=== PATIENT | male | born 1960 | race Caucasian/White ===

== ENCOUNTER 2017-11-11 14:23 | Observation (INO) ==
[2017-11-11] MEDS ORDERED: *HR* Heparin 5,000 UNIT/ML VIAL IVP ONE (16:46)
[2017-11-11] MEDS ORDERED: *HR* Heparin 5,000 UNIT/ML VIAL IVP PRN ×2 (16:46)
[2017-11-11] MEDS ORDERED: Heparin 25,000 UNIT/500 ML D5W 25,000 UNIT/500 ML BAG IVC SCH (17:00)
[2017-11-11 17:12] LABS: Hematocrit 49.3 % (37.5-50.1); Hemoglobin 15.8 g/dL (12.9-16.9); Mean Corpuscular Hemoglobin 28.3 pg (28.0-33.3); Mean Corpuscular Volume 88.2 fL (83.0-100.0); Platelet Count 279 K/mcL (140-400); Red Blood Count 5.59 M/mcL (4.19-5.50)
[2017-11-11 17:18] LABS: INR 1.1; Prothrombin Time 11.3 Seconds (9.4-12.1)
[2017-11-11 17:21] LABS: Activated Partial Thrombo Time 28.8 Seconds (26.0-36.0)
[2017-11-11 17:24] LABS: Albumin 4.3 g/dL (3.5-5.7); Bilirubin,Total 0.5 mg/dL (0.3-1.0); Calcium 8.8 mg/dL (8.6-10.3); Carbon Dioxide 32 mEq/L (23-29); Chloride 102 mEq/L (98-107); Sodium 138 mEq/L (136-145)
--- NOTE | 2017-11-11 17:25 | Emergency Department Note ---
Disposition Clinical Impression: Pulmonary emboli DVT (deep venous thrombosis) Qualifiers: DVT location: lower extremity Affected thrombotic vein of extremity: unspecified vein of extremity Chronicity: acute Laterality: left Qualified Code( s): I82.402 - Acute embolism and thrombosis of unspecified deep veins of left lower extremity Disposition: Admitted As Inpatient Condition: Good Referrals: Jennifer Dickerson, [employer] [Primary Care Provider] - Forms: ED Satisfaction Letter Time of Disposition: 17:28 Extremity Problem HPI - General Chief complaint: ED Extremity Problem,Nontraumatic Stated complaint: LLE Blood clot Time Seen by Provider: 11/11/17 16:35 Source: patient Limitations: no limitations Nursing Notes Reviewed: Yes Vital Signs Reviewed: Yes - History of Present Illness HPI Narrative: 57 year old male presnts to the ED with complaints of LLE DVT. He states for the past 3-4 days he has been experiencing redness and pain ot the left inner thigh and denies chest pain, hemopytis, or palpiations, or hypoxia. Ptinet states that he was seen at today and they did a DVt US and he was confirmed for a greater saphenous vein DVT on the left side. Patients appears to be extremely upset about the results and is aggressive and inappropiate about missing out on the weekend and going to see her brand new grandchild and he is tearful at bedside. I have stressed to patient and spouse that this can be a life threatening and we recommend admission to the hospital, but I cannot force them to stay and if they decide to leave they will need to sign an AMA form Pain Scale: 6 - Related Data Home Medications Medication Instructions Recorded Confirmed Alpha Lipoic Acid 100 mg PO HS 01/02/16 11/11/17 Aspirin 325 mg PO DAILY 01/02/16 11/11/17 Bromelains 500 mg PO HS 01/02/16 11/11/17 Cetirizine HCl [Zyrtec] 10 mg PO HS 01/02/16 11/11/17 Chromium Amino Acid Chelate 400 mcg PO HS 01/02/16 11/11/17 [Chromium] Cinnamon Bark [Cinnamon] 500 mg PO DAILY 01/02/16 11/11/17 Metformin HCl [Glucophage] 1,000 mg PO BID 01/02/16 11/11/17 Metoprolol [Lopressor] 12.5 mg PO BID 01/02/16 11/11/17 Niacin [Niacor] 500 mg PO HS 01/02/16 11/11/17 [place]-3S/Dha/Epa/Fish Oil [Fish 1 each PO BID 01/02/16 11/11/17 Oil 1,200 mg Softgel] Pravastatin Sodium [Pravachol] 20 mg PO HS 01/02/16 11/11/17 Selenium 200 mcg PO HS 01/02/16 11/11/17 SitaGLIPtin [Januvia] 100 mg PO DAILY 01/02/16 11/11/17 Tadalafil [Cialis] 20 mg PO AD PRN 01/02/16 11/11/17 Ubidecarenone [Co Q10] 100 mg PO HS 01/02/16 11/11/17 Valsartan [Diovan] 320 mg PO DAILY 01/02/16 11/11/17 Glimepiride [Amaryl] 4 mg PO DAILY 11/11/17 11/11/17 Allergies Allergy/AdvReac Type Severity Reaction Status Date / Time No Known Allergies Allergy Verified 09/03/15 10:33 Constitutional: Denies: fever, chills, weakness, weight change Eyes: Denies: eye pain, eye discharge, vision change ENT ED: Denies: ear pain, throat pain, dental pain, hearing loss, epistaxis, congestion, dysphagia Cardiovascular: Denies: chest pain, palpitations, dyspnea on exertion, edema, syncope Respiratory: Denies: cough, dyspnea, wheezes, hemoptysis, stridor Gastrointestinal: Denies: abdominal pain, nausea, vomiting, diarrhea, constipation, hematemesis, melena, hematochezia Genitourinary: Denies: urgency, dysuria, frequency, hematuria Musculoskeletal: Reports: as per HPI. Denies: back pain, neck pain, arthralgia , myalgia Integumentary: Denies: rash, abrasion, lesions Neurological: Denies: headache, weakness, numbness, paresthesias, confusion, abnormal gait, vertigo Psychiatric: Denies: anxiety, depression, suicidal thoughts, homicidal thoughts , auditory hallucinations, visual hallucinations Endocrine: Denies: fatigue Hematological/Lymphatic: Denies: easy bleeding, easy bruising Allergic/Immunologic: Denies: facial swelling, urticaria Past Medical History - Past Medical History Medical history: Reports: diabetes, GERD, hypertension, other Surgical history: Reports: cholecystectomy, other Psychiatric history: Reports: no psych history - Social History Smoking Status: Never smoker Smokeless Tobacco Status: No Alcohol use: Reports: none Drug use: Reports: none Physical Exam - General Limitations: no limitations General appearance: alert - Head Head exam: atraumatic, normocephalic, normal inspection - Eye Eye exam: Present: normal appearance, PERRL, EOMI - Expanded Eye Exam Pupils: Bilateral: reactive - ENT ENT exam: normal exam, normal oropharynx, mucous membranes moist - Expanded ENT Exam External ear exam: Present: normal external inspection Mouth exam: Present: normal external inspection Teeth exam: Present: normal inspection Throat exam: Present: normal inspection - Neck Neck exam: Present: normal inspection, full ROM, trachea midline - Chest Chest inspection: Present: normal inspection, symmetric chest wall rise - Respiratory Respiratory exam: Present: normal lung sounds bilaterally - Cardiovascular Cardiovascular exam: Present: regular rate, normal rhythm, normal heart sounds - Abdominal Exam Abdominal exam: Present: soft, Non-Tender. Absent: tenderness, distention, guarding, rebound, rigidity - Extremities Exam Extremities exam: Present: normal inspection, full ROM. Absent: tenderness, pedal edema - Expanded Upper Extremity Exam Shoulder exam: Present: normal inspection, full ROM Arm exam: Present: normal inspection, full ROM Elbow exam: Present: normal inspection, full ROM Forearm/Wrist exam: Present: normal inspection, full ROM Hand exam: Present: normal inspection, full ROM Vascular exam: Normal: capillary refill, radial pulse - Expanded Lower Extremity Exam Hip/Pelvis exam: Present: normal inspection, full ROM Upper leg exam: Present: normal inspection, full ROM, erythema (left inner thigh , and painful) Knee exam: Present: normal inspection, full ROM Lower leg exam: Present: normal inspection, full ROM Ankle exam: Present: normal inspection, full ROM Foot/toe exam: Present: normal inspection, full ROM Neurovascular/Tendon exam: Absent: motor deficit, sensory deficit, tendon deficit - Back Exam Back exam: Present: normal inspection, full ROM. Absent: tenderness - Neurological Exam Neurological exam: Present: alert, oriented X3 - Expanded Neurological Exam Patient oriented to: Present: person, place, time Coma Scale Eye Opening: Spontaneous Coma Scale Motor Response: Obeys Commands Coma Scale Verbal Response: Oriented Coma Scale Total: 15 - Psychiatric Psychiatric exam: Present: normal affect, normal mood - Skin Skin exam: Present: warm, dry, intact, normal color Course Course Narrative: we will start heparin and CTA to rule out PE and admit to medicine. - Consultations Consultation #1: discussed case with Dr. Unger and he accepts patient to his service. Johnnet updated and is agreeable to plan. Time: 20:04 Vital Signs Temperature 97.8 F 11/11/17 14:26 Pulse Rate 80 11/11/17 14:26 Respiratory Rate 18 11/11/17 14:26 Blood Pressure 149/86 11/11/17 14:26 O2 Sat by Pulse Oximetry 98 11/11/17 14:26 Temperature 97.8 F 11/11/17 14:26 Pulse Rate 80 11/11/17 14:26 Respiratory Rate 18 11/11/17 14:26 Blood Pressure 149/86 11/11/17 14:26 O2 Sat by Pulse Oximetry 98 11/11/17 14:26 Oxygen Delivery Oxygen Delivery Room Air Extremity Problem, Nontraumati - Lab Data Result diagrams: 11/11/17 16:55 11/11/17 16:55 Lab Results 11/11/17 11/11/17 11/11/17 Range/Units 16:55 16:55 16:55 WBC 6.7 (4.3-11.1) K/mcL RBC 5.59 H (4.19-5.50) M/mcL Hgb 15.8 (12.9-16.9) g/dL Hct 49.3 (37.5-50.1) % MCV 88.2 (83.0-100.0) fL MCH 28.3 (28.0-33.3) pg MCHC 32.0 (31.6-35.5) g/dL RDW 12.0 (11.5-14.5) % Plt Count 279 (140-400) K/mcL MPV 9.0 L (9.4-12.4) fL PT (9.4-12.1) Seconds INR APTT (26.0-36.0) Seconds Sodium 138 (136-145) mEq/L Potassium 4.0 (3.5-5.1) mEq/L Chloride 102 (98-107) mEq/L Carbon Dioxide 32 H (23-29) mEq/L BUN 14 (6-20) mg/dL Creatinine 0.89 (0.70-1.30) mg/dL Est GFR ( Amer) > 60 (> 60) Est GFR (Non-Af Amer) > 60 (> 60) BUN/Creatinine Ratio 16 (6-26) Glucose 107 H (70-105) mg/dL Calculated Osmolality 287 (280-300) Calcium 8.8 (8.6-10.3) mg/dL Total Bilirubin 0.5 (0.3-1.0) mg/dL AST 17 (13-39) Units/L ALT 27 (7-52) Units/L Alkaline Phosphatase 70 (34-104) Units/L Troponin I < 0.03 (< 0.04) ng/mL Serum Total Protein 7.2 (6.4-8.9) g/dL Albumin 4.3 (3.5-5.7) g/dL Globulin 2.9 (2.4-3.5) g/dL Albumin/Globulin Ratio 1.5 (1.1-2.2) 11/11/17 Range/Units 16:55 WBC (4.3-11.1) K/mcL RBC (4.19-5.50) M/mcL Hgb (12.9-16.9) g/dL Hct (37.5-50.1) % MCV (83.0-100.0) fL MCH (28.0-33.3) pg MCHC (31.6-35.5) g/dL RDW (11.5-14.5) % Plt Count (140-400) K/mcL MPV (9.4-12.4) fL PT 11.3 (9.4-12.1) Seconds INR 1.1 APTT 28.8 (26.0-36.0) Seconds Sodium (136-145) mEq/L Potassium (3.5-5.1) mEq/L Chloride (98-107) mEq/L Carbon Dioxide (23-29) mEq/L BUN (6-20) mg/dL Creatinine (0.70-1.30) mg/dL Est GFR ( Amer) (> 60) Est GFR (Non-Af Amer) (> 60) BUN/Creatinine Ratio (6-26) Glucose (70-105) mg/dL Calculated Osmolality (280-300) Calcium (8.6-10.3) mg/dL Total Bilirubin (0.3-1.0) mg/dL AST (13-39) Units/L ALT (7-52) Units/L Alkaline Phosphatase (34-104) Units/L Troponin I (< 0.04) ng/mL Serum Total Protein (6.4-8.9) g/dL Albumin (3.5-5.7) g/dL Globulin (2.4-3.5) g/dL Albumin/Globulin Ratio (1.1-2.2)
[2017-11-11 17:30] LABS: Alanine Aminotransferase 27 Units/L (7-52); Albumin/Globulin Ratio 1.5 (1.1-2.2); Alkaline Phosphatase 70 Units/L (34-104); Aspartate Amino Transferase 17 Units/L (13-39); BUN/Creatinine Ratio 16 (6-26); Blood Urea Nitrogen 14 mg/dL (6-20); Globulin 2.9 g/dL (2.4-3.5); Glucose 107 mg/dL (70-105); Osmolality,Calculated 287 (280-300); Total Protein 7.2 g/dL (6.4-8.9); eGFR For African Americans > 60 (> 60); eGFR For Non-African Americans > 60 (> 60)
[2017-11-11] MEDS ORDERED: 0.9 % Sodium Chloride 1,000 ML ONE (18:09)
[2017-11-11] MEDS ORDERED: Naloxone 0.4 MG/ML INJ IVP PRN (19:41)
[2017-11-11] MEDS ORDERED: Acetaminophen 325 MG TABLET PO PRN (19:41)
[2017-11-11] MEDS ORDERED: *HR* Enoxaparin 120 MG/0.8 ML SYRINGE SQ STA (19:41)
--- NOTE | 2017-11-11 20:42 | Internal Med History&Physical ---
Date of Encounter: 11/11/17 Time of Encounter: 20:40 Assessment and Plan (1) Pulmonary emboli Current visit: Yes Status: Acute Patient with bilateral subsegmental pulmonary emboli. We will treat with Lovenox. Discussed different anticoagulation options with the patient and his . They will go with the different options and decide on plan of care. They seem to be leaning towards going with NOAC. We will need to assess her insurance coverage and costs prior to discharging patient. High risk for complications. We will get 2-D echocardiogram to look for any right heart strain. Qualifiers: Pulmonary embolism type: other Chronicity: acute Acute cor pulmonale presence: without acute cor pulmonale Qualified Code(s): I26.99 - Other pulmonary embolism without acute cor pulmonale (2) Acute superficial venous thrombosis of left lower extremity Current visit: Yes Status: Acute Patient with reported left greater saphenous vein thrombosis. Will repeat left lower extremity venous Doppler here. Internal Medicine - H&P: HPI Chief complaint: left leg GSV thrombosis Admitted From: Emergency Dept Plans for Post Hospital Care: Home History of present illness: Mr. Haider is a 57 year old male patient with history of prior greater saphenous vein thrombophlebitis 2 years back presented to the ER with complaints of pain in his left leg that began about 2 weeks back and has been progressively worsening. He was seen in urgent care and was diagnosed with greater saphenous vein thrombosis in the left lower extremity. He was then sent to our ER for further evaluation. In the ER he underwent CT angiogram of the chest which showed bilateral subsegmental pulmonary emboli. Patient denies any chest pain or shortness of breath. Patient has been on aspirin since his prior episode of GSA thrombophlebitis. He has not been on any anticoagulation. Past Med Surg Social Fam HX - Past Medical History Attestation: Yes The following information was validated with the patient. Source: patient Medical history: diabetes, GERD, hypertension, other Psychiatric history: no psych history - Past Surgical History Surgical History: cholecystectomy, other - Social History Smoking Status: Never smoker Smokeless Tobacco Status: No Alcohol use: none Drug use: none - Family History Father Name: iain haider Living Status: Hx Family Cardiac Disorders: Yes - Additional Family History Additional family history: Patient reports that his mother had history of phlebitis in her lower extremity Internal Medicine - H&P: Meds Alpha Lipoic Acid 100 mg PO HS 01/02/16 [History] Aspirin 325 mg PO DAILY 01/02/16 [History] Bromelains 500 mg PO HS 01/02/16 [History] Cetirizine HCl [Zyrtec] 10 mg PO HS 01/02/16 [History] Chromium Amino Acid Chelate [Chromium] 400 mcg PO HS 01/02/16 [History] Cinnamon Bark [Cinnamon] 500 mg PO DAILY 01/02/16 [History] Metformin HCl [Glucophage] 1,000 mg PO BID 01/02/16 [History] Metoprolol [Lopressor] 12.5 mg PO BID 01/02/16 [History] Niacin [Niacor] 500 mg PO HS 01/02/16 [History] [place]-3S/Dha/Epa/Fish Oil [Fish Oil 1,200 mg Softgel] 1 each PO BID 01/02/16 [ History] Pravastatin Sodium [Pravachol] 20 mg PO HS 01/02/16 [History] Selenium 200 mcg PO HS 01/02/16 [History] SitaGLIPtin [Januvia] 100 mg PO DAILY 01/02/16 [History] Tadalafil [Cialis] 20 mg PO AD PRN 01/02/16 [History] Ubidecarenone [Co Q10] 100 mg PO HS 01/02/16 [History] Valsartan [Diovan] 320 mg PO DAILY 01/02/16 [History] Glimepiride [Amaryl] 4 mg PO DAILY 11/11/17 [History] 3 Allergy/AdvReac Type Severity Reaction Status Date / Time No Known Allergies Allergy Verified 09/03/15 10:33 All Systems PM: A 10-system review of systems was performed and is negative for pertinent findings except as documented above in the HPI. - Constitutional Constitutional: no chills, no fever(s), no night sweats - EENT Eyes: no change in vision, no discharge, no pain, no photophobia Ears: no ear discharge, no ear pain, no tinnitus Nose, mouth and throat: no dysphagia, no nasal discharge, no neck pain, no sore throat - Cardiovascular Cardiovascular ROS IM: no chest pain, no diaphoresis, no dyspnea, no lightheadedness, no palpitations, no syncope - Respiratory Respiratory: no cough, no dyspnea, no wheezing, no excessive phlegm production - Gastrointestinal Gastrointestinal: no abdominal pain, no diarrhea, no hematemesis, no hematochezia, no melena, no nausea, no vomiting - Musculoskeletal Musculoskeletal ROS IM: no numbness, no tingling - Integumentary Integumentary IM: no rash, no unusual bruising - Neurological Neurological ROS: no confusion, no convulsions, no focal weakness, no numbness, no tingling, no tremor(s) - Hematologic/Lymphatic Hematologic/Lymphatic: no easy bruising - Constitutional Vitals: Temp Pulse Resp BP Pulse Ox 97.8 F 80 16 148/92 98 11/11/17 14:26 11/11/17 14:26 11/11/17 20:30 11/11/17 20:30 11/11/17 14:26 General appearance: Present: cooperative, mild distress, A&O X 3, answers questions appropriately - Respiratory Respiratory exam: Present: CTAB. Absent: accessory muscle use, rales, rhonchi, wheezes - Cardiovascular Cardiovascular exam: Present: RRR, +S1, +S2. Absent: diastolic murmur, gallop, rubs, systolic murmur - GI/Abdominal GI/Abdominal exam: Present: normal bowel sounds, soft, no peritoneal signs. Absent: distended, tenderness - Extremities Exam Extremities exam: Present: tenderness (Left medial thigh), warm, radial pulses palpable and symmetrical. Absent: calf tenderness, cyanotic, pedal edema - Neurological Exam Neurological exam: Present: CN II-XII intact, oriented X3, no focal deficits. Absent: facial droop, speech deficit - Skin Skin exam: Present: dry, intact Internal Med - H&P Results - Labs CBC & Chem 7: 11/11/17 16:55 11/11/17 16:55 - Impressions Impressions Chest CTA 11/11/17 16:46 IMPRESSION: 1. Left lower lobe and right lower lobe subsegmental pulmonary emboli. No CT evidence of right heart strain. RV to LV ratio is less than 1. 2. Left lower lobe 5 mm noncalcified nodule. Please see below for follow-up recommendations. Findings were discussed with Shaista Nj at 7:09 pm on 11/11/2017. RECOMMENDATIONS: Fleischner Society guidelines for follow-up and management of incidentally detected pulmonary nodules: Single Solid Nodule: Nodule size less than 6 mm In a low-risk patient, no routine follow-up. In a high-risk patient, optional CT at 12 months. - Low risk patients include individuals with minimal or absent history of smoking and other known risk factors. - High risk patients include individuals with a history or smoking or known risk factors. Radiology 2017 http://pubs.rsna.org/doi/full/[email or web address] D/ / 11/11/2017 19:00:59 Roddy Dorsey MD / yoli Interpreting Provider: Roddy Dorsey MD
[2017-11-11] MEDS ORDERED: Loratadine 10 MG TABLET PO SCH (21:00)
[2017-11-11] MEDS ORDERED: (Ubidecarenone [Co Q10] 100 MG) PO SCH (21:00)
[2017-11-11] MEDS ORDERED: Niacin (24 HR) 500 MG TAB.ER.24H PO SCH (21:00)
[2017-11-11] MEDS: (Omega-3s/Dha/Epa/Fish Oil [Fish Oil 1,200 Mg Softgel]) PO SCH (21:53)
[2017-11-11] MEDS ORDERED: *HR* Dextrose 50 % in Water (Syg) 50 ML SYRINGE IVP PRN (22:34)
[2017-11-11] MEDS ORDERED: D5% in Water 1,000 ML IVC PRN (22:34)
[2017-11-11] MEDS ORDERED: Dextrose Gel 15 GM/37.5 ML TUBE PO PRN ×2 (22:34)
[2017-11-11 22:50] LABS: Hemoglobin A1C 6.9 %
[2017-11-12] MEDS ORDERED: *HR* Enoxaparin 120 MG/0.8 ML SYRINGE SQ SCH (06:00)
[2017-11-12 06:25] LABS: Basophils % 0.6 %; Eosinophils # 0.2 K/mcL (0.0-0.6); Eosinophils % 3.7 %; Hematocrit 44.4 % (37.5-50.1); Hemoglobin 14.4 g/dL (12.9-16.9); Immature Granulocytes % 0.6 % (0-4); Lymphocytes % 39.5 %; Mean Corpuscular HGB Conc 32.4 g/dL (31.6-35.5); Mean Corpuscular Hemoglobin 28.8 pg (28.0-33.3); Mean Corpuscular Volume 88.8 fL (83.0-100.0); Mean Platelet Volume 9.3 fL (9.4-12.4); Monocytes # 0.6 K/mcL (0.0-1.3); Monocytes % 12.2 %; Neutrophils # 2.2 K/mcL (1.6-8.9); Platelet Count 243 K/mcL (140-400); Red Cell Distribution Width 12.1 % (11.5-14.5); Segmented Neutrophils % 43.4 %
[2017-11-12 06:45] LABS: BUN/Creatinine Ratio 15 (6-26); Blood Urea Nitrogen 14 mg/dL (6-20); Calcium 8.6 mg/dL (8.6-10.3); Carbon Dioxide 31 mEq/L (23-29); Chloride 104 mEq/L (98-107); Glucose 177 mg/dL (70-105); Osmolality,Calculated 293 (280-300); Potassium 4.6 mEq/L (3.5-5.1); Sodium 139 mEq/L (136-145); eGFR For African Americans > 60 (> 60); eGFR For Non-African Americans > 60 (> 60)
[2017-11-12] MEDS ORDERED: Insulin LISPRO 300 UNITS/3 ML VIAL SQ SCH ×2 (07:30→21:00)
[2017-11-12] MEDS: (Omega-3s/Dha/Epa/Fish Oil [Fish Oil 1,200 Mg Softgel]) PO SCH (08:32)
--- NOTE | 2017-11-12 08:48 | Discharge Summary ---
Date of Encounter: 11/12/17 Time of Encounter: 08:44 - Discharge Diagnosis (1) Acute superficial venous thrombosis of left lower extremity Priority: Primary Status: Acute (2) DVT (deep venous thrombosis) Priority: Primary Status: Acute Qualifiers: DVT location: lower extremity Affected thrombotic vein of extremity: unspecified vein of extremity Chronicity: acute Laterality: left Qualified Code(s): I82.402 - Acute embolism and thrombosis of unspecified deep veins of left lower extremity (3) Pulmonary emboli Priority: Primary Status: Acute Qualifiers: Pulmonary embolism type: other Chronicity: acute Acute cor pulmonale presence: without acute cor pulmonale Qualified Code(s): I26.99 - Other pulmonary embolism without acute cor pulmonale (4) Pulmonary nodule less than 6 cm determined by computed tomography of lung Priority: Secondary Status: Acute (5) Diabetes Priority: Secondary Status: Acute Qualifiers: Diabetes mellitus type: type 2 Diabetes mellitus complication status: without complication Diabetes mellitus prison insulin use: without prison use Qualified Code(s): E11.9 - Type 2 diabetes mellitus without complications - Discharge Medications Prescriptions: Omeprazole [PriLOSEC] 20 mg PO DAILY #30 cap Rivaroxaban [Xarelto] 1 dose PO AD 30 Days pack Home Medications: Alpha Lipoic Acid 100 mg PO HS 01/02/16 [History] Aspirin 325 mg PO DAILY 01/02/16 [History] Bromelains 500 mg PO HS 01/02/16 [History] Cetirizine HCl [Zyrtec] 10 mg PO HS 01/02/16 [History] Chromium Amino Acid Chelate [Chromium] 400 mcg PO HS 01/02/16 [History] Cinnamon Bark [Cinnamon] 500 mg PO DAILY 01/02/16 [History] Metformin HCl [Glucophage] 1,000 mg PO BID 01/02/16 [History] Metoprolol [Lopressor] 12.5 mg PO BID 01/02/16 [History] Niacin [Niacor] 500 mg PO HS 01/02/16 [History] [place]-3S/Dha/Epa/Fish Oil [Fish Oil 1,200 mg Softgel] 1 each PO BID 01/02/16 [ History] Pravastatin Sodium [Pravachol] 20 mg PO HS 01/02/16 [History] Selenium 200 mcg PO HS 01/02/16 [History] SitaGLIPtin [Januvia] 100 mg PO DAILY 01/02/16 [History] Tadalafil [Cialis] 20 mg PO AD PRN 01/02/16 [History] Ubidecarenone [Co Q10] 100 mg PO HS 01/02/16 [History] Valsartan [Diovan] 320 mg PO DAILY 01/02/16 [History] Glimepiride [Amaryl] 4 mg PO DAILY 11/11/17 [History] Omeprazole [PriLOSEC] 20 mg PO DAILY #30 cap 11/12/17 [Rx] Rivaroxaban [Xarelto] 1 dose PO AD 30 Days pack 11/12/17 [Rx] Allergies/Adverse Reactions: 3 Allergy/AdvReac Type Severity Reaction Status Date / Time No Known Allergies Allergy Verified 09/03/15 10:33 Procedures/tests Complete & Pending: Procedures Performed prior 72 hours Category Date Time Status EV echocardiogram Routine Y 11/11/17 21:23 Ordered Date of admission: 11/11/17 20:12 Primary care physician: Jennifer Dickerson CNP Discharging clinician: Rl Tyler Anticipated date of discharge: 11/12/17 - Patient Status Disposition: Home, Self-Care Condition: Good Functional capacity at discharge: independent ambulation Overall status at discharge: patient is back to baseline - Discharge Instructions Additional Instructions: Follow with her doctor next week. - Diet and Activity Activity: increase activity as tolerated Diet: advance to your usual diet Interval History: History of present illness: Mr. Puente is a 57 year old male patient with history of prior greater saphenous vein thrombophlebitis 2 years back presented to the ER with complaints of pain in his left leg that began about 2 weeks back and has been progressively worsening. He was seen in urgent care and was diagnosed with greater saphenous vein thrombosis in the left lower extremity. He was then sent to our ER for further evaluation. In the ER he underwent CT angiogram of the chest which showed bilateral subsegmental pulmonary emboli. Patient denies any chest pain or shortness of breath. Patient has been on aspirin since his prior episode of GSA thrombophlebitis. He has not been on any anticoagulation. 11/12: Patient did well. He had no signs of right heart strain. An echocardiogram was ordered but was not done as patient did not have any symptoms to support right heart strain. Furthermore CT scan showed no evidence of right ventricular dilatation. Patient was started on Lovenox 1 mg/kg subcutaneous twice a day and on day of discharge was transitioned to Zarrella toe. At this point the plan will be for 6 months of anticoagulation but will defer this to his primary care provider. Also has evidence of some mild phlebitis in this left inner thigh, he will use warm compresses and monitor. No evidence of infection. He was recommended to elevate his legs and wear compression stockings as well. We discussed bleeding risk while on Xarelto. He will continue his aspirin and continue his Prilosec. He was instructed to avoid all NSAIDs and we just discussed the names of all the NSAIDs. Discussed postphlebitic syndrome and the risks associated with this. Given his history of recurrent phlebitis of his left lower extremity it was recommended he follow- up with his schedule his vascular surgeon for this. We did check a prothrombin gene mutation as well as a factor V Leiden which will be available to his primary care provider on follow-up. He was recommended to wear a medication alert bracelet given that he is now on blood thinners. Pt denied any chest pain or shortness of breath. No other complaints on day of discharge with the exception of some mild pain in his left inner thigh. Patient otherwise was doing well and deemed stable for discharge. Of note it when he was also seen to have a left lower lobe pulmonary nodule which was 5 mm in size. He has no risk factors, he is a nonsmoker. Recommendation is no further follow-up. Patient is aware of this. Hospital course: Mr. Puente is a 57 year old male - Time Spent with Patient Total time spent providing and/or coordinating discharge services: Greater than 30 minutes (33) - Constitutional Vitals: Temp Pulse Resp BP Pulse Ox 97.9 F 76 14 122/80 94 11/12/17 07:20 11/12/17 07:20 11/12/17 07:20 11/12/17 07:20 11/12/17 07:20 General appearance: Present: cooperative, mild distress, A&O X 3, answers questions appropriately - Head Head exam: Present: atraumatic, normocephalic - Eye Eye exam: Present: PERRL, conjuntiva pink, sclera anicteric Pupils: Present: PERRL - Neck Neck exam general surgery: Present: supple, trachea midline. Absent: lymphadenopathy - Respiratory Respiratory exam: Present: CTAB. Absent: accessory muscle use, rales, rhonchi, wheezes - Cardiovascular Cardiovascular exam: Present: RRR, +S1, +S2. Absent: diastolic murmur, gallop, rubs, systolic murmur Additional comments: No JVD - GI/Abdominal GI/Abdominal exam: Present: normal bowel sounds, soft, no peritoneal signs. Absent: distended, tenderness - Extremities Exam Extremities exam: Present: warm, radial pulses palpable and symmetrical. Absent : calf tenderness (Patient was some mild tenderness in the left inner thigh. No warmth or erythema. This is along the distribution of the greater saphenous vein. He also has evidence of chronic venous insufficiency in both lower extremities.), cyanotic, pedal edema
[2017-11-12] MEDS ORDERED: Aspirin 325 MG TABLET PO SCH (09:00)
[2017-11-12] MEDS ORDERED: Valsartan 160 MG TABLET PO SCH (09:00)
[2017-11-12 11:34] VITALS: BP 119/73
[2017-11-16 23:03] LABS: FACV Specimen WHOLE BLOOD
[2017-11-17 08:12] LABS: Fac V Leiden R506Q Mut Result NEGATIVE
[2017-11-19 00:58] LABS: Prothrombin G20210A Specimen WHOLE BLOOD
[2017-11-21 08:41] LABS: Prothrombin G20210A Mut Result NEGATIVE
== END 2017-11-12 12:20 | disposition home or self-care (01) ==
LOC: 3NENU 14:23 → EMEROO 14:23 → 3NENU 20:34
PROVIDERS: ADMIT Internal Medicine; ATTEND Internal Medicine